=== PATIENT | female | born 1995 | race Two or more races ===

== ENCOUNTER 2017-04-20 09:06 | Inpatient (IN) | payer MEDICAID ==
[~2017-04-20] VITALS: Ht 165.1 cm; Wt 110.6 kg
[2017-04-20] MEDS ORDERED: SODIUM CHLORIDE 0.9% 1,000 ML IV ONE ×2 (10:54→11:19)
[2017-04-20] MEDS ORDERED: MORPHINE SULFATE 4 MG/ML, 1ML IVPush PRN (11:00)
[2017-04-20] MEDS ORDERED: SODIUM CHLORIDE FLUSH 10ML SYR IVF ONE (11:00)
[2017-04-20] MEDS ORDERED: SODIUM CHLORIDE FLUSH 10ML SYR IVF PRN (11:30)
[2017-04-20 11:34] LABS: HEMATOCRIT 43.5 % (34.6-47.8); HEMOGLOBIN 14.5 g/dL (11.7-16.4); WHITE BLOOD COUNT 12.3 x10^3/uL (3.4-10)
[2017-04-20 11:44] LABS: BLOOD UREA NITROGEN 13 mg/dL (7-18)
[2017-04-20] MEDS ORDERED: morphine SULFATE 10 MG/ML, 1ML IVPush PRN (13:00)
[2017-04-20] MEDS ORDERED: HYDROcodone/APAP 5/325 TABLET PO ONE (13:00)
[2017-04-20 13:01] VITALS: BP 124/76
[2017-04-20 13:20] VITALS: BP 128/67
[2017-04-20 13:53] LABS: HCG UR OBC PASS
[2017-04-20] MEDS ORDERED: FENTANYL PF 100 MCG/2ML ONE ×3 (16:43→21:28)
[2017-04-20] MEDS ORDERED: MIDAZOLAM 1 MG/ML, 2ML ONE (16:43)
[2017-04-20] MEDS ORDERED: BUPIVACAINE/PF 0.25% ONE (16:45)
[2017-04-20] MEDS ORDERED: CEFAZOLIN 1,000 MG ONE (17:23)
[2017-04-20] MEDS ORDERED: SUCCINYLCHOLINE 20 MG/ML, 10ML ONE (17:23)
[2017-04-20] MEDS ORDERED: ROCURONIUM 10 MG/ML ONE (17:23)
[2017-04-20] MEDS ORDERED: PROPOFOL 10 MG/ML, 50ML ONE (17:23)
[2017-04-20] MEDS ORDERED: KETOROLAC 30 MG/1 ML ONE (17:23)
[2017-04-20] MEDS ORDERED: DEXAMETHASONE 4 MG/ML, 1ML ONE (17:23)
[2017-04-20] MEDS ORDERED: ONDANSETRON 2MG/ML, 2ML ONE (17:23)
[2017-04-20] MEDS ORDERED: OXYcodone 5 MG/5 ML ORAL.SOL UDC ONE (21:28)
[2017-04-20] MEDS ORDERED: MEPERIDINE/PF 25MG/0.5ML ONE (21:29)
[2017-04-20] MEDS ORDERED: MEPERIDINE/PF 25MG/0.5ML IVPush PRN (21:30)
[2017-04-20] MEDS ORDERED: PROMETHAZINE 25 MG/ML, 1ML IV PRN (21:30)
[2017-04-20] MEDS ORDERED: ACETAMINOPHEN 325 MG TABLET PO PRN (21:30)
[2017-04-20] MEDS ORDERED: OXYcodone 5 MG/5 ML ORAL.SOL UDC PO PRN (21:30)
[2017-04-20] MEDS ORDERED: FENTANYL PF 100 MCG/2ML IV PRN (21:30)
[2017-04-20] MEDS ORDERED: HYDROmorphone 1 MG/ML, 1ML IV PRN (21:30)
[2017-04-20 22:15] VITALS: BP 120/81
[2017-04-20 23:52] VITALS: BP 119/81
[2017-04-21] MEDS: CEFAZOLIN PMX 2GM/50ML 50 ML IV SCH ×2 (00:17→08:07)
[2017-04-21 02:58] VITALS: BP 105/57
[2017-04-21] MEDS: OXYcodone/APAP 5/325MG TABLET PO PRN ×2 (03:06→08:07)
[2017-04-21] MEDS ORDERED: KETOROLAC 30 MG/1 ML IV SCH (03:30)
[2017-04-21 07:43] VITALS: BP 116/73
[2017-04-21] MEDS ORDERED: OXYC-302 PO (07:55)
[2017-04-21] MEDS ORDERED: MELO-184 PO (07:55)
[2017-04-21] MEDS ORDERED: DOCU-30 PO (07:55)
== END 2017-04-21 10:40 | disposition home or self-care (01) | DRG 494 ==
LOC: ED 11:18 → EDIP 11:19 → ED 11:23 → 4NOR 12:35
PROVIDERS: ADMIT Orthopaedic Surgery; ATTEND Orthopaedic Surgery
PROC: 0PSL0ZZ Reposition Left Ulna, Open Approach (ICD-10-PCS; 2017-04-20)
PROC: 0PSG04Z Reposition Left Humeral Shaft with Internal Fixation Device, Open Approach (ICD-10-PCS; principal; 2017-04-20 17:00)
DX: S42.402A Unspecified fracture of lower end of left humerus, initial encounter for closed fracture (principal); F12.90 Cannabis use, unspecified, uncomplicated; W18.39XA Other fall on same level, initial encounter; Z83.3 Family history of diabetes mellitus; Y93.89 Activity, other specified; Y92.89 Other specified places as the place of occurrence of the external cause; Y99.8 Other external cause status
CPT/HCPCS: 36415; 76001; 80048; 81025; 82040; 85025; 96374; J0690; J1100; J1885; J2175; J2250; J2405; J2704; J3010; J3490; J0330; J2270